=== PATIENT | female | born 1930 | race Caucasian/White ===

== ENCOUNTER 2016-10-22 06:48 | Outpatient (CLI) | payer MEDICARE, OTHER ==
[~2016-10-22] VITALS: Ht 162.6 cm; Wt 79.6 kg
--- NOTE | ~2016-10-22 | CATH ---
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 A 0.14 wire was then used to cross the lesion. A balloon catheter was placed across the lesion and inflated. The balloon catheter was then removed. A Drug Eluting Stent was placed and inflated. Post placement angiograms were performed. Informed consent was obtained in the written and verbal form after the risks and benefits were explained. The patient had no further questions and agreed to proceed. The planned puncture-incision site(s) were shaved and prepped with ChloraPrep and draped in the usual sterile manner. Conscious sedation, supplemental oxygen, and pain control medications were delivered by a registered nurse under physician guidance. Surface ECG rhythm, blood pressure measurement, and pulse oximetry were monitored throughout the procedure. Arterial access. The access site was infiltrated with lidocaine. The vessel was entered with the Seldinger technique. A sheath was advanced into the vessel and used for catheter placement. Selective left coronary angiography. A catheter was advanced into the left coronary vessel ostium under Fluoroscopic guidance. Contrast was injected by hand. Images were obtained in multiple projections. Selective right coronary angiography. A catheter was advanced into the right coronary vessel ostium under fluoroscopic guidance. Contrast was injected by hand. Images were obtained in multiple projections. Left heart catheterization. A catheter was advanced across the aortic valve to the left ventricle under fluoroscopic guidance. Resting hemodynamics were obtained. Angioplasty and Stent Placement: A guiding catheter was used to intubate the vessel. A 0.14 wire was then used to cross the lesion. A balloon catheter was placed across the lesion and inflated. The balloon catheter was then removed. A Drug Eluting Stent was placed and inflated. Post placement angiograms were performed. Arterial artery hemostasis was achieved. The patient was transferred to a regular nursing floor via cart accompanied by a nurse. The patient left the laboratory in stable condition. Diagnostic Cath Status: Elective Interventional Cath Status: Elective Procedure Procedure Type Diagnostic procedure:Angiography:, Coronary Angios w/[facility] PCI procedure:Drug Eluting Coronary Stent:, LAD, Diagonal Indications: Unstable angina. The procedure was explained in detail to the patient. Risks, complications and alternative treatments were reviewed. Written consent was obtained. Medications Reviewed with Patient prior to Procedure. Angiographic Findings Dominance: Right Cardiac Arteries and Lesion Findings LMCA: Normal (0% Stenosis).short LAD: Multiple stenosis.calcified, Diag 1 OK Lesion on 2nd Diag: Proximal subsection.99% stenosis 15 mm length reduced to 0%. Pre procedure ESTHER II flow was noted. Post Procedure ESTHER III flow was present. The guidewire cross was successful.The lesion was diagnosed as a low risk lesion.Culprit lesion. Devices used - Prowater Wire .014 x 180. Number of passes: 1. - Emerge Balloon 2.5 x 15. 3 inflation(s) to a max pressure of: 10 italo. - Promus Premier 2.5 x 16 Stent. 2 inflation(s) to a max pressure of: 14 italo. Lesion on Mid LAD: Proximal subsection.85% stenosis 15 mm length reduced to 0%. Pre procedure ESTHER II flow was noted. Post Procedure ESTHER III flow was present. The guidewire cross was successful.The lesion was diagnosed as a low risk lesion. Devices used - Emerge Balloon 2.5 x 15. 1 inflation(s) to a max pressure of: 7 italo. Lesion on Mid LAD: Distal subsection.75% stenosis 15 mm length reduced to 0%. Pre procedure ESTHER II flow was noted. Post Procedure ESTHER III flow was present. The guidewire cross was successful.The lesion was diagnosed as a low risk lesion. Devices used - Promus Premier 2.5 x 16 Stent. 1 inflation(s) to a max pressure of: 11 italo. - Promus Premier 2.5 x 16 Stent. 1 inflation(s) to a max pressure of: 11 italo. LCx: Single stenosis.OM 1 is small, co-dominantThere is a previous stent on 1st Ob Lexi Distal subsection. Lesion on Mid CX: Mid subsection.75% stenosis 15 mm length . RCA: Single stenosis.co-dominant, PL is small, OK; PDA is small, OK Coronary Tree Procedure Data Procedure Date Date: 10/22/2016Start: 08:51 AMEnd: 09:55 AM Entry Locations - Retrograde Percutaneous access was performed through the Right Femoral artery (Primary location). A 6 Fr sheath was inserted. Hemostasis was successfully obtained using Manual Compression. Closure Comments: Sheath sutured in placed. To be pulled with manual pressure later.. Procedure Medications Order and Administration + + + + + !Time !Medication !Dosage !Route ! + + + + + !10/22/2016 08:47 !Versed !1 mg !I.V. ! !AM ! ! ! ! + + + + + !10/22/2016 08:47 !Fentanyl !25 mcg !I.V. ! !AM ! ! ! ! + + + + + !10/22/2016 09:06 !Angiomax (Bivalirudin) !60 mg !I.V. bolus ! !AM !(ACC_5) ! ! ! + + + + + 10/22/2016 09:07 !Angiomax (Bivalirudin) !1.75 mg/kg/hr!I.V. drip ! !AM !(ACC_5) ! ! ! + + + + + 10/22/2016 09:09 !Fentanyl !25 mcg !I.V. ! !AM ! ! ! ! + + + + + 10/22/2016 09:12 !Nipride !60 mcg !I.C. ! !AM ! ! ! ! + + + + + 10/22/2016 09:12 !Fentanyl !25 mcg !I.V. ! !AM ! ! ! ! + + + + + !10/22/2016 09:18 !Oxygen !4 l/min !NC ! !AM ! ! ! ! + + + + + !10/22/2016 09:19 !Nipride !50 mcg !I.C. ! !AM ! ! ! ! + + + + + !10/22/2016 09:26 !Nipride !75 mcg !I.C. ! !AM ! ! ! ! + + + + + !10/22/2016 09:45 !Plavix (ACC_8) !300 mg !P.O. ! !AM ! ! ! ! + + + + + !10/22/2016 09:48 !Angiomax (Bivalirudin) ! !I.V. drip ! !AM !(ACC_5) ! ! ! + + + + + !10/22/2016 09:48 !Oxygen ! !NC ! !AM ! ! ! ! + + + + + Devices Used - A6 Fr. BS JL 4 Diag. Catheterwas used for:Left coronary angiography. - A6 Fr. BS JR 4 Diag. Catheterwas used for:Right coronary angiography. - A6 Fr. BS Angled Pigtail Diag. Catheterwas used for:LV Pressures. - A6 Fr. XB 3.5 Guide Catheterwas used for:Diagonal Intervention. Contrast Material - Isovue [id number] ml Fluoroscopy Time: Diagnostic: 17:00 minutes. Total: 17:00 minutes. Fluoroscopy Dose: Diagnostic: 3122 mGy. Total: 3122 mGy. Estimated Blood Loss: 30 ml. Additional ACC PCI Information PCI Indication:PCI for high risk Non-STEMI or unstable angina. Medical History Allergies - Penicillin. - Penicillin. Risk Factors The patient risk factors include:prior PCI on 01/12/2016;hypercholesterolemia, hypertension, family history of premature CAD, dyslipidemia, Current/Recent(w/in 1 year) tobacco use and prior GA . Admission Data Admission Date: 10/22/2016 Admission Time: 06:48 AM Admit Source: Other Insurance Payors: Medicare. Admission Medications + +------+------+ + + + + !Medication !Dosage!Times !Last !Last !Administered !Comments ! ! ! !Per !Delivery !Delivery ! ! ! ! ! !Day !Date !Time ! ! ! + +------+------+ + + + + ![place] ! ! ! ! !Yes ! ! !Inhibitor ! ! ! ! ! ! ! !(any) ! ! ! ! ! ! ! + +------+------+ + + + + !Beta Maximilian! ! ! ! !Yes ! ! !(any) ! ! ! ! ! ! ! + +------+------+ + + + + !Aspirin ! ! ! ! !Yes ! ! !(any) ! ! ! ! ! ! ! + +------+------+ + + + + Clinical Evaluation Leading to Procedure - The patient's CAD presentation was assessed as: Unstable angina. - The patient's anginal syndrome during the past two weeks was assessed as: Class III according to the [place] Cardiovascular Society Classification System (CCS). Anti-anginal medications were prescribed during the past two weeks. The medication is: Beta Blockers. Hemodynamics Condition: Rest O2 Consumption: Estimated: 153.83Heart Rate: 54 bpm Pressures (mmHg) +-----+ + !Site !Pressure ! +-----+ + !AO !138/42 (76) ! +-----+ + !LV !150/6 ,18 ! +-----+ + !LV !151/5 ,16 ! +-----+ + !AO !158/48 (93) ! +-----+ + !LV !153/5 ,19 ! +-----+ + !AO !188/72 (115) ! +-----+ + Valve Gradients and Areas + +---------+---------+---------+ +---------+ + !Valve !Peak !Mean !Area !Index !Flow !Source ! + +---------+---------+---------+ +---------+ + !Aortic !0 !0 ! ! ! ! ! + +---------+---------+---------+ +---------+ + !Aortic !0 !0 ! ! ! ! ! + +---------+---------+---------+ +---------+ + Shunts Oxygen Values O2 Capacity 170 O2 Consumption 153.83 Discharge Data Discharge Date: 10/23/2016 Hospital Status: Outpatient Signatures dtt: Juan Hadley (cardio) dtd: 10/22/16 0851 Physician Self Edit
[~2016-10-22 06:48] MED LIST: ASPIRIN325 MG PO; B COMPLEX1 EACH PO; BRILINTA90 MG PO; CURCUMIN250 GM PO; FISH OIL1000 MG PO; FOLIC ACID1 MG PO; K-TAB ER20 MEQ PO; LIPITOR20 M1 PO; LISINOPRIL-HCT1 EAC2 PO; LOPRESSOR25 MG PO; MAG-OX-400(241400 MG PO; NITROSTAT0.4 MG SL; NORVASC2.5 MG PO; NORVASC5 MG PO; PLAVIX75 MG PO; VITAMIN B-12500 MCG PO; VITAMIN D35000 UNI1 PO
[2016-10-23 03:56] LABS: BASOPHIL % 0.4 %; EOSINOPHIL # 0.1 K/uL (0.0-0.5); EOSINOPHIL % 1.2 %; HEMOGLOBIN 11.5 g/dL (10.0-15.0); IMMATURE GRANULOCYTE % 0.4 %; LYMPHOCYTE # 2.7 K/uL (0.8-4.0); LYMPHOCYTE % 28.2 %; MCH 32.4 pg (27.0-34.0); MCHC 33.8 gm/dL (32.0-36.5); MCV 95.8 fl (83.0-98.0); MONOCYTE # 0.8 K/uL (0.0-1.0); MONOCYTE % 8.4 %; MPV 10.7 fl (9.4-12.4); NEUTROPHIL # (ANC) 5.9 K/uL (1.8-7.8); NEUTROPHIL % 61.4 %; NRBC % 0 /100WBC (0-0.00); PLATELET COUNT 219 K/uL (150-450); RBC 3.55 M/uL (3.00-5.00); RDW-CV 13.7 % (11.9-14.6); WBC 9.6 K/uL (4.0-11.0)
[2016-10-23 04:14] LABS: ALBUMIN 3.3 gm/dL (3.5-5.0); ANION GAP 13.2 (10.0-19.0); CALCIUM 8.3 mg/dL (8.5-10.5); CREATININE 1.2 mg/dL (0.5-1.1); POTASSIUM 4.2 mMol/L (3.7-5.1); TOTAL BILIRUBIN 0.8 mg/dL (0.0-1.5); TOTAL PROTEIN 6.3 g/dL (6.0-8.4)
--- NOTE | 2016-10-23 06:54 | NUR ---
Significant Event: PT A/0 X3. VSS. SBP 130-140'S NITRO AT 5. RT GROIN SOFT, CSM WNL, ECCHYMOTIC. TYLENOL FOR PAIN, BENADRYL TO SLEEP. PT WILL BE GOING HOME TODAY. Follow up: FOLLOW CARE PLAN.
[2016-10-23] MEDS ORDERED: TYLENOL325 MG PO (10:52)
[2016-10-23] MEDS ORDERED: BENADRYL25 MG PO (10:54)
--- NOTE | 2016-10-23 13:51 | NUR ---
1140 Patient given discharge instructions, perscriptions, and post surgery information. Daughter present for information presentation. Wheeled down stairs by JELANI.
--- NOTE | 2016-10-23 13:53 | NUR ---
1135 PIV taken out by RN. No bleeding, band-aid on site.
== END 2016-10-23 11:50 | disposition disaster alternative care site (69) ==
LOC: GPCU 06:48 → GCAT 06:48 → GPCU 06:49 → GPOC 07:00 → GPCU 10:14 → GCAT 10-23 11:50
PROVIDERS: Internal Medicine Interventional Cardiology
PROC: 4A023N7 Measurement of Cardiac Sampling and Pressure, Left Heart, Percutaneous Approach (ICD-10-PCS; principal; 2016-10-22)
PROC: B216YZZ Fluoroscopy of Right and Left Heart using Other Contrast (ICD-10-PCS; 2016-10-22)
DX: I25.110 Atherosclerotic heart disease of native coronary artery with unstable angina pectoris (principal); I44.4 Left anterior fascicular block; R00.1 Bradycardia, unspecified; R94.31 Abnormal electrocardiogram [ECG] [EKG]
CPT/HCPCS: C1725; C1769; C1874; C1887; C9600; C9601; J0461; J0583; J1644; J2001; J2250; J3010; J7030; J7060